=== PATIENT | male | born 1975 | race Caucasian/White ===

== ENCOUNTER 2020-07-01 08:00 | Outpatient (RCR) | payer BC ==
[~2020-07-01 08:00] MED LIST: AC500T PO; CYCL10TA9 PO; NAPR-243 PO
== END 2020-09-29 | disposition home or self-care (01) ==
LOC: CARD 08:00
PROVIDERS: ATTEND Nurse Practitioner Family
DX: I45.10 Unspecified right bundle-branch block (principal); R00.2 Palpitations
CPT/HCPCS: 93225; 93226

== ENCOUNTER → 2021-01-28 | Outpatient (CLI) | payer BC ==
--- NOTE | 2021-01-28 09:01 | Diagnostic Imaging Report ---
PROCEDURE: CT left upper extremity without contrast. TECHNIQUE: Multiple contiguous axial images were obtained through the left upper extremity without the use of intravenous contrast. Auto Exposure Controls were utilized during the CT exam to meet ALARA standards for radiation dose reduction. INDICATION: Left shoulder pain. COMPARISON: None. FINDINGS: No acute fracture is seen in the left shoulder. Alignment is normal. There are mild degenerative changes in the acromioclavicular joint. No significant joint effusion is seen. Tendons and ligaments are not well evaluated by CT. No focal muscular atrophy is seen in the rotator cuff to suggest a large chronic full-thickness tear. The subacromial space appears normal. No masses or fluid collections are identified. There are degenerative changes in the cervical spine. No abnormality is seen in the imaged left lung. IMPRESSION: Mild degenerative changes in the left shoulder with no acute osseous abnormality seen. No focal muscular atrophy. Dictated by: Dictated on workstation # [id number]
== END ==
LOC: RAD 08:45
PROVIDERS: ATTEND Physician Assistant
DX: M19.012 Primary osteoarthritis, left shoulder (principal); M62.81 Muscle weakness (generalized)
CPT/HCPCS: 73200